=== PATIENT | male | born 1950 | race Caucasian/White ===

== ENCOUNTER → 2017-06-10 09:31 | Outpatient (CLI) | payer MEDICARE, OTHER ==
[2013-01-24 10:20] VITALS: BMI 26.7
[~2017-06-10 09:31] MED LIST: NORCO 10/325 TA1 TA1 PO; PRINIVIL20 MG PO
== END ==
LOC: D.MRI 09:31
DX: R20.0 Anesthesia of skin (principal)

== ENCOUNTER 2017-06-28 18:13 | Emergency (ER) | payer MEDICARE, OTHER ==
[2013-01-24 10:20] VITALS: BMI 26.7
[2017-06-28 18:49] LABS: APPEARANCE HAZY (CLEAR); BILIRUBIN NEGATIVE (NEGATIVE); COLOR YELLOW (YELLOW); GLUCOSE NEGATIVE (NEGATIVE); KETONE NEGATIVE (NEGATIVE); NITRITE NEGATIVE (NEGATIVE); PROTEIN NEGATIVE (NEGATIVE); SPECIFIC GRAVITY 1.015 (1.005-1.020); UROBILINOGEN NORMAL (NORMAL)
[2017-06-28 18:52] LABS: BACTERIA FEW /hpf (NONE SEEN); RED CELLS - URINE 25-50 /hpf (0-5); WHITE CELLS - URINE OCC /hpf (0-5)
[2017-06-28 19:20] LABS: BASOPHILS 0.3 % (0-2); EOSINOPHILS 0.9 % (0-7); HEMATOCRIT 40.1 % (42.0-54.0); IMMATURE GRANULOCYTES 0.5 % (0-5); LYMPHOCYTES 14.2 % (15-50); MCH 32.9 pg (26.0-34.0); MCHC 34.9 g/dL (31.0-37.0); MCV 94.4 fL (80.0-100.0); MEAN PLATELET VOLUME 10.4 fL (7.4-10.4); MONOCYTES 7.2 % (2-11); NEUTROPHILS 76.9 % (40-80); RBC 4.25 10x6/uL (4.20-6.10); RDW 12.8 % (11.5-14.5); WBC 7.5 10x3/uL (4.8-10.8)
[2017-06-28 19:27] LABS: PLATELET COUNT 167 10x3/uL (130-400)
[2017-06-28 19:44] LABS: ALBUMIN 3.7 g/dL (3.4-5.0); ALKALINE PHOSPHATASE 42 U/L (46-116); ALT (SGPT) 26 U/L (10-68); AMYLASE - SERUM 66 U/L (25-115); BILIRUBIN - TOTAL 0.44 mg/dL (0.2-1.3); CALC OSMOLALITY 281 mosm/kg (275-300); CALCIUM 9.2 mg/dL (8.5-10.1); CHLORIDE - SERUM 103 mmol/L (98-107); CREATININE - SERUM 0.9 mg/dL (0.6-1.3); GLUCOSE 130 mg/dL (74-106); LIPASE 139 U/L (73-393); POTASSIUM - SERUM 3.6 mmol/L (3.5-5.1); PROTEIN - SERUM 7.3 g/dL (6.4-8.2); SODIUM 140 mmol/L (136-145); UREA NITROGEN 14 mg/dL (7-18); eGFR NON AFRICAN AMERICAN 90 mL/min (90-120)
== END 2017-06-28 20:46 | disposition home or self-care (01) ==
LOC: D.ER 18:13
PROVIDERS: Emergency Medicine
DX: N20.1 Calculus of ureter (principal); I10 Essential (primary) hypertension

== ENCOUNTER 2017-06-30 17:37 | Emergency (ER) | payer MEDICARE, OTHER ==
[2013-01-24 10:20] VITALS: BMI 26.7
[2017-06-30 18:34] LABS: BASOPHILS 0.2 % (0-2); EOSINOPHILS 1.5 % (0-7); HEMATOCRIT 40.9 % (42.0-54.0); HEMOGLOBIN 14.4 g/dL (13.5-17.5); IMMATURE GRANULOCYTES 0.2 % (0-5); LYMPHOCYTES 12.2 % (15-50); MCH 33.3 pg (26.0-34.0); MCHC 35.2 g/dL (31.0-37.0); MCV 94.5 fL (80.0-100.0); MEAN PLATELET VOLUME 10.5 fL (7.4-10.4); MONOCYTES 8.6 % (2-11); NEUTROPHILS 77.3 % (40-80); PLATELET COUNT 172 10x3/uL (130-400); RBC 4.33 10x6/uL (4.20-6.10); RDW 12.9 % (11.5-14.5)
[2017-06-30 18:37] LABS: WBC 9.6 10x3/uL (4.8-10.8)
[2017-06-30 18:54] LABS: APPEARANCE HAZY (CLEAR); COLOR AMBER (YELLOW)
[2017-06-30 18:54] LABS: ALBUMIN 3.9 g/dL (3.4-5.0); ALKALINE PHOSPHATASE 46 U/L (46-116); ALT (SGPT) 23 U/L (10-68); BILIRUBIN - TOTAL 0.56 mg/dL (0.2-1.3); CALC OSMOLALITY 280 mosm/kg (275-300); CALCIUM 9.1 mg/dL (8.5-10.1); CARBON DIOXIDE 23.4 mmol/L (21.0-32.0); CHLORIDE - SERUM 102 mmol/L (98-107); CREATININE - SERUM 0.8 mg/dL (0.6-1.3); GLUCOSE 132 mg/dL (74-106); POTASSIUM - SERUM 3.7 mmol/L (3.5-5.1); PROTEIN - SERUM 7.7 g/dL (6.4-8.2); SODIUM 139 mmol/L (136-145); UREA NITROGEN 16 mg/dL (7-18); eGFR NON AFRICAN AMERICAN > 90 mL/min (90-120)
[2017-06-30 18:55] LABS: BILIRUBIN NEGATIVE (NEGATIVE); GLUCOSE NEGATIVE (NEGATIVE); KETONE NEGATIVE (NEGATIVE); NITRITE NEGATIVE (NEGATIVE); PROTEIN NEGATIVE (NEGATIVE); UROBILINOGEN NORMAL (NORMAL)
[2017-06-30 18:58] LABS: RED CELLS - URINE >50 /hpf (0-5); WHITE CELLS - URINE 0-5 /hpf (0-5)
[2017-06-30 18:59] LABS: EPITHELIAL CELLS 0-5 /hpf (0-5)
[2017-06-30 19:00] LABS: BACTERIA FEW /hpf (NONE SEEN)
== END 2017-06-30 19:46 | disposition left against medical advice (07) ==
LOC: D.ER 17:37
PROVIDERS: Family Medicine
DX: R10.9 Unspecified abdominal pain (principal)

== ENCOUNTER → 2020-08-14 08:28 | Outpatient (CLI) | payer MEDICARE, OTHER ==
[2013-01-24 10:20] VITALS: BMI 26.7
== END | disposition home or self-care (01) ==
LOC: D.RAD 08-13 08:00
PROVIDERS: ATTEND Family Medicine
DX: R13.12 Dysphagia, oropharyngeal phase (principal)